=== PATIENT | female | born 1955 | race Caucasian/White ===

== ENCOUNTER 2019-05-20 11:14 | Emergency (ER) | payer MEDICARE, MEDICAID ==
[2019-05-20] MEDS ORDERED: Ondansetron 4 MG/2 ML SDV ONE (11:43)
[2019-05-20 11:52] LABS: CHLORIDE,CL 102 mEq/L (98-106); SODIUM,NA 139 mEq/L (136-145)
[2019-05-20] MEDS ORDERED: Ondansetron 4 MG/2 ML SDV IVPUSH PRN (11:53)
[2019-05-20] MEDS ORDERED: fentaNYL 100 MCG/2 ML SDV IVPUSH PRN (11:57)
[2019-05-20] MEDS ORDERED: Alum Hydrox/Mag Hydrox/Simeth 30 ML, Lidocaine 2% 15 ML PO ONE ×2 (12:48)
[2019-05-20] MEDS ORDERED: Morphine 10 MG/ML Syringe IVPUSH ONE (12:49)
--- NOTE | 2019-05-20 13:13 | EDM.PDOC ---
ED HPI GENERAL MEDICAL PROBLEM - General Chief Complaint: Chest Pain Stated Complaint: CP Time Seen by Provider: 05/20/19 11:20 Source of Information: Reports: Patient History Limitations: Reports: No Limitations - History of Present Illness INITIAL COMMENTS - FREE TEXT/NARRATIVE: Berna is a 63 yo female who presents to the ED via private vehicle with complaints of chest pain. She admits symptoms started around 4:30 this morning. States she has been having some epigastric abdominal pain and now has moved into her chest and back as well. States it hurts to touch in both her abdomen and back. She admits to having the urge to vomit. 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 If she puts her hands in her throat she can get herself to throw up. States last bowel movement was last night, which was a lot harder than normal for her. States she is unable to get comfortable and feels worse when she lays down. Onset: Gradual Onset Date: 05/20/19 Onset Time: 04:30 Duration: Getting Worse Location: Reports: Chest, Abdomen, Back, Generalized Quality: Reports: Ache Chest Pain Score (Numeric/FACES): 10 - Related Data Allergies Allergy/AdvReac Type Severity Reaction Status Date / Time ceftriaxone [From Rocephin] Allergy Rash Verified 05/20/19 13:53 cetirizine [From Zyrtec] Allergy Rash Verified 05/20/19 13:53 ciprofloxacin [From Cipro] Allergy Rash Verified 05/20/19 13:53 lorazepam [From Ativan] Allergy Rash Verified 05/20/19 13:53 Penicillins Allergy Rash Verified 05/20/19 13:53 pioglitazone [From Actos] Allergy Rash Verified 05/20/19 13:53 propoxyphene [From Darvon] Allergy Rash Verified 05/20/19 13:53 red (food color) Allergy Anaphylactic Verified 05/20/19 13:53 Shock rosiglitazone [From Avandia] Allergy Rash Verified 05/20/19 13:53 valacyclovir [From Valtrex] Allergy Rash Verified 05/20/19 13:53 Home Meds: Home Meds ALPRAZolam [Xanax] 1 mg PO DAILY PRN 05/20/19 [History] Ascorbate Calcium [Vitamin C] 500 mg PO BID 05/20/19 [History] Aspirin [Ecotrin EC] 1 mg DAILY 05/20/19 [History] Calcium Carbonate/Vitamin D3 [Calcium 600 + Vit D 200] 1 each PO BID 05/20/19 [ History] Carvedilol 6.25 mg BID 05/20/19 [History] Cholecalciferol (Vitamin D3) [Vitamin D] 2,000 tab DAILY 05/20/19 [History] Cyanocobalamin (Vitamin B-12) [Vitamin B-12] 1,000 mcg PO DAILY 05/20/19 [ History] DULoxetine [Cymbalta] 60 mg PO DAILY 05/20/19 [History] Estradiol 1 mg PO DAILY 05/20/19 [History] Levothyroxine 125 mcg DAILY 05/20/19 [History] Lisinopril 2.5 mg PO DAILY 05/20/19 [History] Lysine HCl [l-Lysine] 500 mg PO DAILY 05/20/19 [History] Magnesium 250 mg PO TID 05/20/19 [History] Montelukast [Singulair] 10 mg ASDIRECTED 05/20/19 [History] Multivitamin with Iron [Animal Shapes Plus Iron] 2 tab DAILY 05/20/19 [History] Omeprazole 20 mg PO BID 05/20/19 [History] atorvaSTATin [Lipitor] 10 mg DAILY 05/20/19 [History] Past Medical History Cardiovascular History: Reports: High Cholesterol, Hypertension Respiratory History: Reports: Asthma Gastrointestinal History: Reports: GERD, Other (See Below) (nausea and vomiting) LMP (Approximate): Menopausal Musculoskeletal History: Reports: Fibromyalgia Psychiatric History: Reports: Anxiety Endocrine/Metabolic History: Reports: Diabetes, Type II, Hypothyroidism - Past Surgical History HEENT Surgical History: Reports: Cataract Surgery, Tonsillectomy GI Surgical History: Reports: Appendectomy, Bariatric Procedure, Cholecystectomy , Hernia, Inguinal Female Surgical History: Reports: Hysterectomy, Oophorectomy, Tubal Ligation - History Comment History Comment: Please see RN note for past social, family and medical history Social & Family History - Family History Cardiac: Reports: CAD, High Cholesterol, Hypertension Musculoskeletal: Reports: Arthritis Psychiatric: Reports: Bipolar, Depression, Other (See Below) (alcohol abuse) Endocrine/Metabolic: Reports: Diabetes, Type I, Diabetes, type II - Tobacco Use Smoking Status *Q: Former Smoker Tobacco Use Within Last Twelve Months: No Years of Tobacco use: 35 Used Tobacco, but Quit: Yes Month/Year Tobacco Last Used: 2013 - Alcohol Use Alcohol Use History: No ED ROS GENERAL - Review of Systems Review Of Systems: See Below Constitutional: Reports: Decreased Appetite. Denies: Fever, Chills HEENT: Reports: No Symptoms Respiratory: Reports: No Symptoms. Denies: Shortness of Breath, Wheezing Cardiovascular: Reports: Chest Pain. Denies: Blood Pressure Problem, Edema, Lightheadedness, Palpitations GI/Abdominal: Reports: Abdominal Pain, Constipation, Decreased Appetite, Nausea. Denies: Bloody Stool, Diarrhea, Difficulty Swallowing, Distension, Hematochezia, Melena, Vomiting : Reports: No Symptoms Musculoskeletal: Reports: Back Pain Skin: Reports: No Symptoms Neurological: Reports: No Symptoms Psychiatric: Reports: No Symptoms ED EXAM, GENERAL - Physical Exam Exam: See Below Exam Limited By: No Limitations General Appearance: Alert, Moderate Distress Ears: Normal External Exam, Normal Canal, Hearing Grossly Normal, Normal TMs Nose: Normal Inspection, Normal Mucosa, No Blood Throat/Mouth: Normal Inspection, Normal Lips, Normal Teeth, Normal Gums, Normal Voice, No Airway Compromise Head: Atraumatic, Normocephalic Neck: Normal Inspection, Supple, Non-Tender Respiratory/Chest: No Respiratory Distress, Lungs Clear, Normal Breath Sounds Cardiovascular: Normal Peripheral Pulses, Regular Rate, Rhythm, No Edema, No Murmur Peripheral Pulses: 2+: Radial (L), Radial (R), Posterior Tibial (L), Posterior Tibial (R), Dorsalis Pedis (L), Dorsalis Pedis (R) GI/Abdominal: No Organomegaly, No Mass, Guarding, Tender (epigastric), Abnormal Bowel Sounds (hypoactive), Other (obese) Back Exam: Paraspinal Tenderness, Vertebral Tenderness (generalized through out entire low to midback) Extremities: No Pedal Edema Neurological: Alert, Oriented Psychiatric: Normal Affect, Normal Mood Skin Exam: Warm, Dry, Intact, Normal Color, No Rash Course - Vital Signs Last Recorded V/S: Last Vital Signs Temp 96.6 F 05/20/19 12:38 Pulse 71 05/20/19 12:38 Resp 20 05/20/19 12:38 BP 156/79 H 05/20/19 12:38 Pulse Ox 94 L 05/20/19 12:38 - Orders/Labs/Meds Labs: Laboratory Tests 05/20/19 05/20/19 05/20/19 Range/Units 11:33 11:33 11:33 WBC 7.5 (5.0-10.0) 10^3/uL RBC 4.31 (4.00-5.50) 10^6/uL Hgb 13.4 (12.0-16.0) g/dL Hct 40.3 (37.0-47.0) % MCV 93.5 (82.0-94.0) fL MCH 31.1 (27.0-32.0) pg MCHC 33.3 (33.0-38.0) g/dL RDW Coeff of Jemma 13.3 (11.0-15.0) % Plt Count 220 (150-400) 10^3/uL Neut % (Auto) 79.2 (35-85) % Lymph % (Auto) 15.2 (10-55) % [place] % (Auto) 4.8 (0-16) % Eos % (Auto) 0.7 (0-5) % Baso % (Auto) 0.1 (0-3) % Neut # (Auto) 5.94 (1.80-7.00) 10^3/uL Lymph # (Auto) 1.14 (1.00-4.80) 10^3/uL [place] # (Auto) 0.36 (0.00-0.80) 10^3/uL Eos # (Auto) 0.05 (0.00-0.45) 10^3/uL Baso # (Auto) 0.01 10^3/uL PT 10.8 (9.7-12.3) SEC INR 1.05 (0.92-1.18) APTT 24.3 (23.2-32.3) SEC Sodium 139 (136-145) mEq/L Potassium 4.1 (3.5-5.0) mEq/L Chloride 102 (98-106) mEq/L Carbon Dioxide 26 (21-32) mmol/L BUN 26 H (7-18) mg/dL Creatinine 0.9 (0.6-1.0) mg/dL Est Cr Clr Drug Dosing TNP Estimated GFR (MDRD) > 60 (>=60) mL/min Glucose 158 H D (75-99) mg/dL Lactic Acid (0.4-2.0) mmol/L Calcium 9.0 (8.4-10.1) mg/dL Total Bilirubin (0.0-1.0) mg/dL Direct Bilirubin (0.0-0.3) mg/dL Indirect Bilirubin mg/dL AST (15-37) U/L ALT (12-78) U/L Alkaline Phosphatase (46-116) U/L Lactate Dehydrogenase 369 H (100-190) U/L Creatine Kinase 33 (21-215) U/L Troponin I < 0.017 (0.00-0.06) ng/mL C-Reactive Protein (0.2-0.8) mg/dL Total Protein (6.4-8.2) g/dL Albumin (3.4-5.0) g/dL Globulin (2.7-3.2) g/dL Albumin/Globulin Ratio (0.9-1.8) Amylase (25-115) U/L Lipase (73-393) U/L Urine Color (YELLOW) Urine Appearance (CLEAR) Urine pH (4.5-8.0) Ur Specific [place] (1.003-1.020) Urine Protein (NEGATIVE) mg/dL Urine Glucose (UA) (NEGATIVE) mg/dL Urine Ketones (NEGATIVE) mg/dL Urine Occult Blood (NEGATIVE) Urine Nitrite (NEGATIVE) Urine Bilirubin (NEGATIVE) Urine Urobilinogen (0.2-1.0) EU/dL Ur Leukocyte Esterase (NEGATIVE) Urine RBC (0-5) /HPF Urine WBC (0-5) /HPF Ur Epithelial Cells (NOT SEEN) /HPF Urine Bacteria (NOT SEEN) /HPF Urine Mucus (NOT SEEN) /HPF 05/20/19 05/20/19 05/20/19 Range/Units 11:50 12:00 12:00 WBC (5.0-10.0) 10^3/uL RBC (4.00-5.50) 10^6/uL Hgb (12.0-16.0) g/dL Hct (37.0-47.0) % MCV (82.0-94.0) fL MCH (27.0-32.0) pg MCHC (33.0-38.0) g/dL RDW Coeff of Jemma (11.0-15.0) % Plt Count (150-400) 10^3/uL Neut % (Auto) (35-85) % Lymph % (Auto) (10-55) % [place] % (Auto) (0-16) % Eos % (Auto) (0-5) % Baso % (Auto) (0-3) % Neut # (Auto) (1.80-7.00) 10^3/uL Lymph # (Auto) (1.00-4.80) 10^3/uL [place] # (Auto) (0.00-0.80) 10^3/uL Eos # (Auto) (0.00-0.45) 10^3/uL Baso # (Auto) 10^3/uL PT (9.7-12.3) SEC INR (0.92-1.18) APTT (23.2-32.3) SEC Sodium (136-145) mEq/L Potassium (3.5-5.0) mEq/L Chloride (98-106) mEq/L Carbon Dioxide (21-32) mmol/L BUN (7-18) mg/dL Creatinine (0.6-1.0) mg/dL Est Cr Clr Drug Dosing Estimated GFR (MDRD) (>=60) mL/min Glucose (75-99) mg/dL Lactic Acid (0.4-2.0) mmol/L Calcium (8.4-10.1) mg/dL Total Bilirubin 1.3 H (0.0-1.0) mg/dL Direct Bilirubin 0.9 H (0.0-0.3) mg/dL Indirect Bilirubin 0.4 mg/dL AST 363 H* (15-37) U/L ALT 325 H* (12-78) U/L Alkaline Phosphatase 263 H (46-116) U/L Lactate Dehydrogenase (100-190) U/L Creatine Kinase (21-215) U/L Troponin I (0.00-0.06) ng/mL C-Reactive Protein < 0.2 L (0.2-0.8) mg/dL Total Protein 7.1 (6.4-8.2) g/dL Albumin 3.3 L (3.4-5.0) g/dL Globulin 3.8 H (2.7-3.2) g/dL Albumin/Globulin Ratio 0.9 (0.9-1.8) Amylase 544 H (25-115) U/L Lipase 16660 H (73-393) U/L Urine Color Dark yellow (YELLOW) Urine Appearance Clear (CLEAR) Urine pH 5.0 (4.5-8.0) Ur Specific [place] >= 1.030 H (1.003-1.020) Urine Protein Trace H (NEGATIVE) mg/dL Urine Glucose (UA) Negative (NEGATIVE) mg/dL Urine Ketones Negative (NEGATIVE) mg/dL Urine Occult Blood Trace-lysed H (NEGATIVE) Urine Nitrite Negative (NEGATIVE) Urine Bilirubin Moderate H (NEGATIVE) Urine Urobilinogen 1.0 (0.2-1.0) EU/dL Ur Leukocyte Esterase Negative (NEGATIVE) Urine RBC 0-5 (0-5) /HPF Urine WBC Not seen (0-5) /HPF Ur Epithelial Cells Moderate H (NOT SEEN) /HPF Urine Bacteria Few H (NOT SEEN) /HPF Urine Mucus Few H (NOT SEEN) /HPF 05/20/19 05/20/19 Range/Units 13:20 16:05 WBC (5.0-10.0) 10^3/uL RBC (4.00-5.50) 10^6/uL Hgb (12.0-16.0) g/dL Hct (37.0-47.0) % MCV (82.0-94.0) fL MCH (27.0-32.0) pg MCHC (33.0-38.0) g/dL RDW Coeff of Jemma (11.0-15.0) % Plt Count (150-400) 10^3/uL Neut % (Auto) (35-85) % Lymph % (Auto) (10-55) % [place] % (Auto) (0-16) % Eos % (Auto) (0-5) % Baso % (Auto) (0-3) % Neut # (Auto) (1.80-7.00) 10^3/uL Lymph # (Auto) (1.00-4.80) 10^3/uL [place] # (Auto) (0.00-0.80) 10^3/uL Eos # (Auto) (0.00-0.45) 10^3/uL Baso # (Auto) 10^3/uL PT (9.7-12.3) SEC INR (0.92-1.18) APTT (23.2-32.3) SEC Sodium (136-145) mEq/L Potassium (3.5-5.0) mEq/L Chloride (98-106) mEq/L Carbon Dioxide (21-32) mmol/L BUN (7-18) mg/dL Creatinine (0.6-1.0) mg/dL Est Cr Clr Drug Dosing Estimated GFR (MDRD) (>=60) mL/min Glucose (75-99) mg/dL Lactic Acid 2.5 H (0.4-2.0) mmol/L Calcium (8.4-10.1) mg/dL Total Bilirubin (0.0-1.0) mg/dL Direct Bilirubin (0.0-0.3) mg/dL Indirect Bilirubin mg/dL AST (15-37) U/L ALT (12-78) U/L Alkaline Phosphatase (46-116) U/L Lactate Dehydrogenase (100-190) U/L Creatine Kinase (21-215) U/L Troponin I < 0.017 (0.00-0.06) ng/mL C-Reactive Protein (0.2-0.8) mg/dL Total Protein (6.4-8.2) g/dL Albumin (3.4-5.0) g/dL Globulin (2.7-3.2) g/dL Albumin/Globulin Ratio (0.9-1.8) Amylase (25-115) U/L Lipase (73-393) U/L Urine Color (YELLOW) Urine Appearance (CLEAR) Urine pH (4.5-8.0) Ur Specific [place] (1.003-1.020) Urine Protein (NEGATIVE) mg/dL Urine Glucose (UA) (NEGATIVE) mg/dL Urine Ketones (NEGATIVE) mg/dL Urine Occult Blood (NEGATIVE) Urine Nitrite (NEGATIVE) Urine Bilirubin (NEGATIVE) Urine Urobilinogen (0.2-1.0) EU/dL Ur Leukocyte Esterase (NEGATIVE) Urine RBC (0-5) /HPF Urine WBC (0-5) /HPF Ur Epithelial Cells (NOT SEEN) /HPF Urine Bacteria (NOT SEEN) /HPF Urine Mucus (NOT SEEN) /HPF Meds: Medications Discontinued Medications Generic Name Dose Route Start Last Admin Trade Name Freq PRN Reason Stop Dose Admin Al Hydroxide/Mg Hydroxide 30 0 ml 05/20/19 12:48 05/20/19 12:54 ml/ Lidocaine HCl 15 ml PO 05/20/19 12:49 15 ml ONETIME ONE Administration Fentanyl 50 mcg 05/20/19 11:57 05/20/19 12:05 Sublimaze IVPUSH 50 mcg Q6H PRN Administration Pain Hydromorphone HCl 1 mg 05/20/19 13:14 05/20/19 13:24 Dilaudid IVPUSH 05/20/19 13:15 1 mg ONETIME ONE Administration Hydromorphone HCl 1 mg 05/20/19 13:55 05/20/19 14:02 Dilaudid IVPUSH 05/20/19 13:56 1 mg ONETIME ONE Administration Hydromorphone HCl 1 mg 05/20/19 16:47 05/20/19 16:52 Dilaudid IVPUSH 05/20/19 16:48 1 mg ONETIME ONE Administration Sodium Chloride 1,000 mls @ 1,000 mls/hr 05/20/19 13:15 05/20/19 13:21 Normal Saline IV 05/20/19 14:14 1,000 mls/hr .BOLUS ONE Administration Iopamidol 162 ml 05/20/19 13:20 05/20/19 13:41 Isovue-370 (76%) IV 05/20/19 13:21 162 ml ONETIME ONE Administration Morphine Sulfate 5 mg 05/20/19 12:49 05/20/19 12:57 Morphine IVPUSH 05/20/19 12:50 5 mg ONETIME ONE Administration Ondansetron HCl 4 mg 05/20/19 11:53 05/20/19 11:57 Zofran IVPUSH 4 mg Q6H PRN Administration Nausea Ondansetron HCl Confirm 05/20/19 11:43 05/20/19 12:34 Zofran Administered 05/20/19 11:44 Not Given Dose 4 mg .ROUTE .STK-MED ONE Ondansetron HCl 4 mg 05/20/19 13:14 05/20/19 13:30 Zofran IVPUSH 05/20/19 13:15 4 mg NOW STA Administration Ondansetron HCl 4 mg 05/20/19 15:41 05/20/19 15:47 Zofran IVPUSH 05/20/19 15:42 4 mg NOW STA Administration - Re-Assessments/Exams Free Text/Narrative Re-Assessment/Exam: 05/20/19 13:35 Labs, EKG, chest x-ray and abdominal films were all unremarkable. Patient did have a spec grav greater than 1.030. Will start IV fluids. Initially, Berna was given 4mg of Zofran and 50mcg of Fentanyl without any relief. Pain continued to be a 10 out of 10 and she was given 5mg of Morphine. She continued to not get any relief. I consulted with Calvin Varma who will continue care. CT of the abdomen/pelvis was ordered to rule out ischema vs obstruction. 05/20/19 13:[address] of the abdomen/pelvis and appears to be a very large gallbladder with sludge and stones present. I discussed with Berna her recollection of having gallbaldder surgery, which she states she did when she was 18. After reconfirmation, she admits it was actually only her appendix. Departure - Departure Time of Disposition: 14:00 Disposition: DC/Tfer to [facility] 02 Clinical Impression: Biliary acute pancreatitis Qualifiers: Acute pancreatitis complication: no infection or necrosis Qualified Code(s): K85.10 - Biliary acute pancreatitis without necrosis or infection - Discharge Information Referrals: Quintin Guadalupe MD [Primary Care Provider] - Forms: ED Department Discharge - Problem List & Annotations (1) Biliary acute pancreatitis SNOMED Code(s): 456827557 Code(s): K85.10 - BILIARY ACUTE PANCREATITIS WITHOUT NECROSIS OR INFECTION Status: Acute Qualifiers: Acute pancreatitis complication: no infection or necrosis Qualified Code(s) : K85.10 - Biliary acute pancreatitis without necrosis or infection - Assessment/Plan Plan: Calvin Varma did transfer patient secondary to biliary pancreatitis. Please see his note for discharge.
[2019-05-20] MEDS ORDERED: Ondansetron 4 MG/2 ML SDV IVPUSH STA ×2 (13:14→15:41)
[2019-05-20] MEDS ORDERED: HYDROmorphone 1 MG/ML Syringe IVPUSH ONE ×3 (13:14→16:47)
[2019-05-20] MEDS ORDERED: Sodium Chloride 0.9% 1,000 ML IV ONE (13:15)
[2019-05-20] MEDS ORDERED: Iopamidol 755 Mg/ML 200 ML Bottle IV ONE (13:20)
--- NOTE | 2019-05-20 13:34 | EDM.PDOC ---
ED HPI GENERAL MEDICAL PROBLEM - General Chief Complaint: Chest Pain Stated Complaint: CP Time Seen by Provider: 05/20/19 11:20 Source of Information: Reports: Patient, RN Notes Reviewed History Limitations: Reports: No Limitations - History of Present Illness INITIAL COMMENTS - FREE TEXT/NARRATIVE: Berna is a 63 yo female who presents to the ED via private vehicle with complaints of chest pain. She admits symptoms started around 4:30 this morning. States she has been having some epigastric abdominal pain and now has moved into her chest and back as well. States it hurts to touch in both her abdomen and back. She admits to having the urge to vomit. 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 If she puts her hands in her throat she can get herself to throw up. States last bowel movement was last night, which was a lot harder than normal for her. States she is unable to get comfortable and feels worse when she lays down. Onset: Gradual Onset Date: 05/20/19 Onset Time: 04:30 Duration: Getting Worse Location: Reports: Chest, Abdomen, Back, Generalized Quality: Reports: Ache Chest Pain Score (Numeric/FACES): 10 - Related Data Allergies Allergy/AdvReac Type Severity Reaction Status Date / Time ceftriaxone [From Rocephin] Allergy Rash Verified 05/20/19 13:53 cetirizine [From Zyrtec] Allergy Rash Verified 05/20/19 13:53 ciprofloxacin [From Cipro] Allergy Rash Verified 05/20/19 13:53 lorazepam [From Ativan] Allergy Rash Verified 05/20/19 13:53 Penicillins Allergy Rash Verified 05/20/19 13:53 pioglitazone [From Actos] Allergy Rash Verified 05/20/19 13:53 propoxyphene [From Darvon] Allergy Rash Verified 05/20/19 13:53 red (food color) Allergy Anaphylactic Verified 05/20/19 13:53 Shock rosiglitazone [From Avandia] Allergy Rash Verified 05/20/19 13:53 valacyclovir [From Valtrex] Allergy Rash Verified 05/20/19 13:53 Home Meds: Home Meds ALPRAZolam [Xanax] 1 mg PO DAILY PRN 05/20/19 [History] Ascorbate Calcium [Vitamin C] 500 mg PO BID 05/20/19 [History] Aspirin [Ecotrin EC] 1 mg DAILY 05/20/19 [History] Calcium Carbonate/Vitamin D3 [Calcium 600 + Vit D 200] 1 each PO BID 05/20/19 [ History] Carvedilol 6.25 mg BID 05/20/19 [History] Cholecalciferol (Vitamin D3) [Vitamin D] 2,000 tab DAILY 05/20/19 [History] Cyanocobalamin (Vitamin B-12) [Vitamin B-12] 1,000 mcg PO DAILY 05/20/19 [ History] DULoxetine [Cymbalta] 60 mg PO DAILY 05/20/19 [History] Estradiol 1 mg PO DAILY 05/20/19 [History] Levothyroxine 125 mcg DAILY 05/20/19 [History] Lisinopril 2.5 mg PO DAILY 05/20/19 [History] Lysine HCl [l-Lysine] 500 mg PO DAILY 05/20/19 [History] Magnesium 250 mg PO TID 05/20/19 [History] Montelukast [Singulair] 10 mg ASDIRECTED 05/20/19 [History] Multivitamin with Iron [Animal Shapes Plus Iron] 2 tab DAILY 05/20/19 [History] Omeprazole 20 mg PO BID 05/20/19 [History] atorvaSTATin [Lipitor] 10 mg DAILY 05/20/19 [History] Past Medical History Cardiovascular History: Reports: High Cholesterol, Hypertension Respiratory History: Reports: Asthma Gastrointestinal History: Reports: GERD, Other (See Below) (nausea and vomiting) Musculoskeletal History: Reports: Fibromyalgia Psychiatric History: Reports: Anxiety Endocrine/Metabolic History: Reports: Diabetes, Type II, Hypothyroidism - Past Surgical History HEENT Surgical History: Reports: Cataract Surgery, Tonsillectomy GI Surgical History: Reports: Appendectomy, Bariatric Procedure, Cholecystectomy , Hernia, Inguinal Female Surgical History: Reports: Hysterectomy, Oophorectomy, Tubal Ligation - History Comment History Comment: Please see RN note for past social, family and medical history Social & Family History - Family History Cardiac: Reports: High Cholesterol, Hypertension Musculoskeletal: Reports: Arthritis Psychiatric: Reports: Bipolar, Depression Endocrine/Metabolic: Reports: Diabetes, Type I, Diabetes, type II ED ROS GENERAL - Review of Systems Review Of Systems: See Below Constitutional: Reports: No Symptoms HEENT: Reports: No Symptoms Respiratory: Reports: No Symptoms Cardiovascular: Reports: No Symptoms Endocrine: Reports: No Symptoms GI/Abdominal: Reports: Abdominal Pain, Nausea. Denies: Vomiting : Reports: No Symptoms Musculoskeletal: Reports: Back Pain Skin: Reports: No Symptoms Neurological: Reports: No Symptoms Psychiatric: Reports: No Symptoms Hematologic/Lymphatic: Reports: No Symptoms Immunologic: Reports: No Symptoms ED EXAM, GI/ABD - Physical Exam Exam: See Below Exam Limited By: No Limitations General Appearance: Alert, WD/WN, Anxious, Moderate Distress (In Pain, moaning. ), Obese Eyes: Bilateral: Normal Appearance Ears: Normal External Exam, Normal Canal, Hearing Grossly Normal, Normal TMs Nose: Normal Inspection, Normal Mucosa, No Blood Throat/Mouth: Normal Inspection, Normal Lips, Normal Teeth, Normal Gums, Normal Oropharynx, Normal Voice, No Airway Compromise Head: Atraumatic, Normocephalic Neck: Normal Inspection, Supple, Non-Tender, Full Range of Motion Respiratory/Chest: No Respiratory Distress, Lungs Clear, Normal Breath Sounds, No Accessory Muscle Use, Chest Non-Tender Cardiovascular: Normal Peripheral Pulses, Regular Rate, Rhythm, No Edema, No Gallop, No JVD, No Murmur, No Rub GI/Abdominal Exam: Soft (Lower abd.), Guarding (RUQ), Tender (RUQ severe), Hernia (Umbilical large, not reducable. ), Other (Obesity makes landmarks difficult to locate during examination. ) (Female) Exam: Deferred Rectal (Female) Exam: Deferred Back Exam: Normal Inspection, Full Range of Motion. No: CVA Tenderness (L), CVA Tenderness (R), Decreased Range of Motion, Muscle Spasm, Paraspinal Tenderness, Vertebral Tenderness Extremities: Normal Inspection, Normal Range of Motion, Non-Tender, No Pedal Edema, Normal Capillary Refill Neurological: Alert, Oriented, No Motor/Sensory Deficits Psychiatric: Anxious, Other (moaning, appears in pain. ) Skin Exam: Warm, Dry, Intact, Normal Color, No Rash Lymphatic: No Adenopathy Course - Vital Signs Last Recorded V/S: Last Vital Signs Temp 96.6 F 05/20/19 12:38 Pulse 71 05/20/19 12:38 Resp 20 05/20/19 12:38 BP 156/79 H 05/20/19 12:38 Pulse Ox 94 L 05/20/19 12:38 - Orders/Labs/Meds Orders: Active Orders 24 hr Category Date Time Status Abdomen 2V AP Flat Upright [CR] Stat Exams 05/20/19 12:01 Taken Abdomen Pelvis w Cont [CT] Stat Exams 05/20/19 13:14 Taken Chest 2V [CR] Routine Exams 05/20/19 Taken TROPONIN I [CHEM] Stat Lab 05/20/19 16:03 Ordered Ondansetron [Zofran] Med 05/20/19 11:53 Active 4 mg IVPUSH Q6H PRN fentaNYL [Sublimaze] Med 05/20/19 11:57 Active 50 mcg IVPUSH Q6H PRN Medication Orders Fentanyl (Sublimaze) 50 mcg IVPUSH Q6H PRN PRN Reason: Pain Last Admin: 05/20/19 12:05 Dose: 50 mcg Ondansetron HCl (Zofran) 4 mg IVPUSH Q6H PRN PRN Reason: Nausea Last Admin: 05/20/19 11:57 Dose: 4 mg Labs: Laboratory Tests 05/20/19 05/20/19 05/20/19 Range/Units 11:33 11:33 11:33 WBC 7.5 (5.0-10.0) 10^3/uL RBC 4.31 (4.00-5.50) 10^6/uL Hgb 13.4 (12.0-16.0) g/dL Hct 40.3 (37.0-47.0) % MCV 93.5 (82.0-94.0) fL MCH 31.1 (27.0-32.0) pg MCHC 33.3 (33.0-38.0) g/dL RDW Coeff of Jemma 13.3 (11.0-15.0) % Plt Count 220 (150-400) 10^3/uL Neut % (Auto) 79.2 (35-85) % Lymph % (Auto) 15.2 (10-55) % [place] % (Auto) 4.8 (0-16) % Eos % (Auto) 0.7 (0-5) % Baso % (Auto) 0.1 (0-3) % Neut # (Auto) 5.94 (1.80-7.00) 10^3/uL Lymph # (Auto) 1.14 (1.00-4.80) 10^3/uL [place] # (Auto) 0.36 (0.00-0.80) 10^3/uL Eos # (Auto) 0.05 (0.00-0.45) 10^3/uL Baso # (Auto) 0.01 10^3/uL PT 10.8 (9.7-12.3) SEC INR 1.05 (0.92-1.18) APTT 24.3 (23.2-32.3) SEC Sodium 139 (136-145) mEq/L Potassium 4.1 (3.5-5.0) mEq/L Chloride 102 (98-106) mEq/L Carbon Dioxide 26 (21-32) mmol/L BUN 26 H (7-18) mg/dL Creatinine 0.9 (0.6-1.0) mg/dL Est Cr Clr Drug Dosing TNP Estimated GFR (MDRD) > 60 (>=60) mL/min Glucose 158 H D (75-99) mg/dL Lactic Acid (0.4-2.0) mmol/L Calcium 9.0 (8.4-10.1) mg/dL Total Bilirubin (0.0-1.0) mg/dL Direct Bilirubin (0.0-0.3) mg/dL Indirect Bilirubin mg/dL AST (15-37) U/L ALT (12-78) U/L Alkaline Phosphatase (46-116) U/L Lactate Dehydrogenase 369 H (100-190) U/L Creatine Kinase 33 (21-215) U/L Troponin I < 0.017 (0.00-0.06) ng/mL C-Reactive Protein (0.2-0.8) mg/dL Total Protein (6.4-8.2) g/dL Albumin (3.4-5.0) g/dL Globulin (2.7-3.2) g/dL Albumin/Globulin Ratio (0.9-1.8) Amylase (25-115) U/L Lipase (73-393) U/L Urine Color (YELLOW) Urine Appearance (CLEAR) Urine pH (4.5-8.0) Ur Specific Gregory (1.003-1.020) Urine Protein (NEGATIVE) mg/dL Urine Glucose (UA) (NEGATIVE) mg/dL Urine Ketones (NEGATIVE) mg/dL Urine Occult Blood (NEGATIVE) Urine Nitrite (NEGATIVE) Urine Bilirubin (NEGATIVE) Urine Urobilinogen (0.2-1.0) EU/dL Ur Leukocyte Esterase (NEGATIVE) Urine RBC (0-5) /HPF Urine WBC (0-5) /HPF Ur Epithelial Cells (NOT SEEN) /HPF Urine Bacteria (NOT SEEN) /HPF Urine Mucus (NOT SEEN) /HPF 05/20/19 05/20/19 05/20/19 Range/Units 11:50 12:00 12:00 WBC (5.0-10.0) 10^3/uL RBC (4.00-5.50) 10^6/uL Hgb (12.0-16.0) g/dL Hct (37.0-47.0) % MCV (82.0-94.0) fL MCH (27.0-32.0) pg MCHC (33.0-38.0) g/dL RDW Coeff of Jemma (11.0-15.0) % Plt Count (150-400) 10^3/uL Neut % (Auto) (35-85) % Lymph % (Auto) (10-55) % [place] % (Auto) (0-16) % Eos % (Auto) (0-5) % Baso % (Auto) (0-3) % Neut # (Auto) (1.80-7.00) 10^3/uL Lymph # (Auto) (1.00-4.80) 10^3/uL [place] # (Auto) (0.00-0.80) 10^3/uL Eos # (Auto) (0.00-0.45) 10^3/uL Baso # (Auto) 10^3/uL PT (9.7-12.3) SEC INR (0.92-1.18) APTT (23.2-32.3) SEC Sodium (136-145) mEq/L Potassium (3.5-5.0) mEq/L Chloride (98-106) mEq/L Carbon Dioxide (21-32) mmol/L BUN (7-18) mg/dL Creatinine (0.6-1.0) mg/dL Est Cr Clr Drug Dosing Estimated GFR (MDRD) (>=60) mL/min Glucose (75-99) mg/dL Lactic Acid (0.4-2.0) mmol/L Calcium (8.4-10.1) mg/dL Total Bilirubin 1.3 H (0.0-1.0) mg/dL Direct Bilirubin 0.9 H (0.0-0.3) mg/dL Indirect Bilirubin 0.4 mg/dL AST 363 H* (15-37) U/L ALT 325 H* (12-78) U/L Alkaline Phosphatase 263 H (46-116) U/L Lactate Dehydrogenase (100-190) U/L Creatine Kinase (21-215) U/L Troponin I (0.00-0.06) ng/mL C-Reactive Protein < 0.2 L (0.2-0.8) mg/dL Total Protein 7.1 (6.4-8.2) g/dL Albumin 3.3 L (3.4-5.0) g/dL Globulin 3.8 H (2.7-3.2) g/dL Albumin/Globulin Ratio 0.9 (0.9-1.8) Amylase 544 H (25-115) U/L Lipase 60769 H (73-393) U/L Urine Color Dark yellow (YELLOW) Urine Appearance Clear (CLEAR) Urine pH 5.0 (4.5-8.0) Ur Specific Gregory >= 1.030 H (1.003-1.020) Urine Protein Trace H (NEGATIVE) mg/dL Urine Glucose (UA) Negative (NEGATIVE) mg/dL Urine Ketones Negative (NEGATIVE) mg/dL Urine Occult Blood Trace-lysed H (NEGATIVE) Urine Nitrite Negative (NEGATIVE) Urine Bilirubin Moderate H (NEGATIVE) Urine Urobilinogen 1.0 (0.2-1.0) EU/dL Ur Leukocyte Esterase Negative (NEGATIVE) Urine RBC 0-5 (0-5) /HPF Urine WBC Not seen (0-5) /HPF Ur Epithelial Cells Moderate H (NOT SEEN) /HPF Urine Bacteria Few H (NOT SEEN) /HPF Urine Mucus Few H (NOT SEEN) /HPF 05/20/19 Range/Units 13:20 WBC (5.0-10.0) 10^3/uL RBC (4.00-5.50) 10^6/uL Hgb (12.0-16.0) g/dL Hct (37.0-47.0) % MCV (82.0-94.0) fL MCH (27.0-32.0) pg MCHC (33.0-38.0) g/dL RDW Coeff of Jemma (11.0-15.0) % Plt Count (150-400) 10^3/uL Neut % (Auto) (35-85) % Lymph % (Auto) (10-55) % [place] % (Auto) (0-16) % Eos % (Auto) (0-5) % Baso % (Auto) (0-3) % Neut # (Auto) (1.80-7.00) 10^3/uL Lymph # (Auto) (1.00-4.80) 10^3/uL [place] # (Auto) (0.00-0.80) 10^3/uL Eos # (Auto) (0.00-0.45) 10^3/uL Baso # (Auto) 10^3/uL PT (9.7-12.3) SEC INR (0.92-1.18) APTT (23.2-32.3) SEC Sodium (136-145) mEq/L Potassium (3.5-5.0) mEq/L Chloride (98-106) mEq/L Carbon Dioxide (21-32) mmol/L BUN (7-18) mg/dL Creatinine (0.6-1.0) mg/dL Est Cr Clr Drug Dosing Estimated GFR (MDRD) (>=60) mL/min Glucose (75-99) mg/dL Lactic Acid 2.5 H (0.4-2.0) mmol/L Calcium (8.4-10.1) mg/dL Total Bilirubin (0.0-1.0) mg/dL Direct Bilirubin (0.0-0.3) mg/dL Indirect Bilirubin mg/dL AST (15-37) U/L ALT (12-78) U/L Alkaline Phosphatase (46-116) U/L Lactate Dehydrogenase (100-190) U/L Creatine Kinase (21-215) U/L Troponin I (0.00-0.06) ng/mL C-Reactive Protein (0.2-0.8) mg/dL Total Protein (6.4-8.2) g/dL Albumin (3.4-5.0) g/dL Globulin (2.7-3.2) g/dL Albumin/Globulin Ratio (0.9-1.8) Amylase (25-115) U/L Lipase (73-393) U/L Urine Color (YELLOW) Urine Appearance (CLEAR) Urine pH (4.5-8.0) Ur Specific Gregory (1.003-1.020) Urine Protein (NEGATIVE) mg/dL Urine Glucose (UA) (NEGATIVE) mg/dL Urine Ketones (NEGATIVE) mg/dL Urine Occult Blood (NEGATIVE) Urine Nitrite (NEGATIVE) Urine Bilirubin (NEGATIVE) Urine Urobilinogen (0.2-1.0) EU/dL Ur Leukocyte Esterase (NEGATIVE) Urine RBC (0-5) /HPF Urine WBC (0-5) /HPF Ur Epithelial Cells (NOT SEEN) /HPF Urine Bacteria (NOT SEEN) /HPF Urine Mucus (NOT SEEN) /HPF Meds: Medications Generic Name Dose Route Start Last Admin Trade Name Freq PRN Reason Stop Dose Admin Fentanyl 50 mcg 05/20/19 11:57 05/20/19 12:05 Sublimaze IVPUSH 50 mcg Q6H PRN Administration Pain Ondansetron HCl 4 mg 05/20/19 11:53 05/20/19 11:57 Zofran IVPUSH 4 mg Q6H PRN Administration Nausea Discontinued Medications Generic Name Dose Route Start Last Admin Trade Name Freq PRN Reason Stop Dose Admin Al Hydroxide/Mg Hydroxide 30 0 ml 05/20/19 12:48 05/20/19 12:54 ml/ Lidocaine HCl 15 ml PO 05/20/19 12:49 15 ml ONETIME ONE Administration Hydromorphone HCl 1 mg 05/20/19 13:14 05/20/19 13:24 Dilaudid IVPUSH 05/20/19 13:15 1 mg ONETIME ONE Administration Hydromorphone HCl 1 mg 05/20/19 13:55 05/20/19 14:02 Dilaudid IVPUSH 05/20/19 13:56 1 mg ONETIME ONE Administration Sodium Chloride 1,000 mls @ 1,000 mls/hr 05/20/19 13:15 05/20/19 13:21 Normal Saline IV 05/20/19 14:14 1,000 mls/hr .BOLUS ONE Administration Iopamidol 162 ml 05/20/19 13:20 05/20/19 13:41 Isovue-370 (76%) IV 05/20/19 13:21 162 ml ONETIME ONE Administration Morphine Sulfate 5 mg 05/20/19 12:49 05/20/19 12:57 Morphine IVPUSH 05/20/19 12:50 5 mg ONETIME ONE Administration Ondansetron HCl Confirm 05/20/19 11:43 05/20/19 12:34 Zofran Administered 05/20/19 11:44 Not Given Dose 4 mg .ROUTE .STK-MED ONE Ondansetron HCl 4 mg 05/20/19 13:14 05/20/19 13:30 Zofran IVPUSH 05/20/19 13:15 4 mg NOW STA Administration Ondansetron HCl 4 mg 05/20/19 15:41 05/20/19 15:47 Zofran IVPUSH 05/20/19 15:42 4 mg NOW STA Administration - Radiology Interpretation Free Text/Narrative:: Gallbladder sludge and or gallstones but no secondary inflammatory changes. Common bile duct size is prominent correlate with liver enzyems as duct distally has fairly abrupt termination correlate for choledocholithiasis. CT Results Date: 05/20/19 CT Results Time: 15:30 - Re-Assessments/Exams Free Text/Narrative Re-Assessment/Exam: 05/20/19 13:43 Kolton HARDING has given me report on this patient. I have assumed care of this patient. I assessed the patient. She is guarding her abdomen after having Fentanyl and Morphine. She continues severe pain and moaning. The patient reports having a hard BM at 4pm today. She reports nausea but no vomiting, but reports history of of gastric bypass many years ago. I have reviewed patient labs. The patient abdomen pain is intractable. I suspect bowel obstruction, bowel pelvis ischemia, OR cholecystitis as possibilities. Considered US of gallbladder, however due to the amount of pain the patient is having, and possible obstruction/ischemia based of patient pain, will CT. Ordered a CT of abd/pelvis. Giving Dilaudid for pain. 05/20/19 15:34 Patient pain after Dilaudid is now a 2/10. She appears much more comfortable. I received patient CT report. I then reviewed labs to notice no liver enzymes were done, I have ordered these. Once I receive, I will call [facility] to consult general surgeon to determine surgical or nonsurgical. I have also also added a troponin repeat due to presentation of epigastric pain radiation into the back with nausea. 05/20/19 16:[address] Farooq general surgeon at [facility]. He believes the patient has biliary pancreatitis. He said to transfer the patient so he can evaluate and treat the patient. I will transfer the patient. Departure - Departure Time of Disposition: 16:23 Disposition: DC/Tfer to [facility] 02 Condition: Fair Clinical Impression: Biliary acute pancreatitis Qualifiers: Acute pancreatitis complication: no infection or necrosis Qualified Code(s): K85.10 - Biliary acute pancreatitis without necrosis or infection - Discharge Information *PRESCRIPTION DRUG MONITORING PROGRAM REVIEWED*: Not Applicable *COPY OF PRESCRIPTION DRUG MONITORING REPORT IN PATIENT TISH: Not Applicable Referrals: Quintin Guadalupe MD [Primary Care Provider] - Forms: ED Department Discharge - My Orders Last 24 Hours: My Active Orders 05/20/19 13:14 Abdomen Pelvis w Cont [CT] Stat 05/20/19 16:03 TROPONIN I [CHEM] Stat - Assessment/Plan Last 24 Hours: My Active Orders 05/20/19 13:14 Abdomen Pelvis w Cont [CT] Stat 05/20/19 16:03 TROPONIN I [CHEM] Stat Plan: PLEASE SEE RN NOTE FOR PFSH. I am transferring the patient to [facility]. The risks and benefits discussed with patient and family. The accept transfer. The risks of transfer are mvc, worsening of pain, nausea, , worsening of condition. The risk of staying in [place] are , worsening of pain, worsening of condition, jaundice. The benefits of going to [place] are seeing general surgeon, surgery if needed, further evaluation, testing, and treatment, higher level of care. The benefits of staying in [place] are close to home.
== END 2019-05-20 17:00 ==
LOC: CC.ED 11:14
DX: K85.10 Biliary acute pancreatitis without necrosis or infection (principal); I10 Essential (primary) hypertension; E78.00 Pure hypercholesterolemia, unspecified; J45.909 Unspecified asthma, uncomplicated; E11.9 Type 2 diabetes mellitus without complications; E03.9 Hypothyroidism, unspecified; F41.9 Anxiety disorder, unspecified; M79.7 Fibromyalgia; K21.9 Gastro-esophageal reflux disease without esophagitis; Z79.82 Long term (current) use of aspirin; Z79.890 Hormone replacement therapy; Z79.899 Other long term (current) drug therapy; Z88.0 Allergy status to penicillin; Z88.1 Allergy status to other antibiotic agents; Z88.3 Allergy status to other anti-infective agents; Z88.5 Allergy status to narcotic agent; Z88.8 Allergy status to other drugs, medicaments and biological substances
CPT/HCPCS: 36415; 71046; 74019; 74177; 80048; 80076; 81001; 82150; 82550; 83605; 83615; 83690; 84484; 85025; 85610; 85730; 86140; 93005; 96361; 96374; 96375; 96376; 99285; A9270; J1170; J2270; J2405; J3010; J7030; Q9967; 99284

== ENCOUNTER 2020-05-04 21:05 | Emergency (ER) | payer MEDICARE, MEDICAID ==
[2020-05-04] MEDS ORDERED: Ondansetron 4 MG Tab.DIS PO ONE (22:20)
[2020-05-04] MEDS ORDERED: Morphine 2 MG/ML SYRINGE IM ONE (22:20)
--- NOTE | 2020-05-04 22:25 | EDM.PDOC ---
ED HPI GENERAL MEDICAL PROBLEM - General Chief Complaint: General Stated Complaint: Pelvic pain Time Seen by Provider: 05/04/20 22:19 Source of Information: Reports: Patient History Limitations: Reports: No Limitations - History of Present Illness INITIAL COMMENTS - FREE TEXT/NARRATIVE: This patient is a 64 year old female that presents to the ER. Patient reports that she was getting in the tub and slipped and fell hitting her right hip on the tub. Patient reports right hip pain. Patient denies hitting head, head injury, n, v, vision changes, neck pain, back pain. Patient reports left buttock pain. Patient is in wheelchair. She was able to stand on her own and weight bear without assistance for exam. Onset: Today Onset Date: 05/04/20 Duration: Hour(s): (3) Location: Reports: Lower Extremity, Left Severity: Mild Improves with: Reports: None Worsens with: Reports: None Associated Symptoms: Reports: No Other Symptoms. Denies: Confusion, Chest Pain, Cough, cough w sputum, Diaphoresis, Fever/Chills, Headaches, Loss of Appetite, Malaise, Nausea/Vomiting, Rash, Seizure, Shortness of Breath, Syncope, Weakness Right Pelvic Pain Score (Numeric/FACES): 10 - Related Data Allergies Allergy/AdvReac Type Severity Reaction Status Date / Time ceftriaxone [From Rocephin] Allergy Rash Verified 05/04/20 21:15 cetirizine [From Zyrtec] Allergy Rash Verified 05/04/20 21:15 ciprofloxacin [From Cipro] Allergy Rash Verified 05/04/20 21:15 lorazepam [From Ativan] Allergy Rash Verified 05/04/20 21:15 Penicillins Allergy Rash Verified 05/04/20 21:15 pioglitazone [From Actos] Allergy Rash Verified 05/04/20 21:15 propoxyphene [From Darvon] Allergy Rash Verified 05/04/20 21:15 red (food color) Allergy Anaphylactic Verified 05/04/20 21:15 Shock rosiglitazone [From Avandia] Allergy Rash Verified 05/04/20 21:15 valacyclovir [From Valtrex] Allergy Rash Verified 05/04/20 21:15 Home Meds: Home Meds ALPRAZolam [Xanax] 1 mg PO DAILY PRN 05/20/19 [History] Ascorbate Calcium [Vitamin C] 500 mg PO BID 05/20/19 [History] Aspirin [Ecotrin EC] 1 mg DAILY 05/20/19 [History] Calcium Carbonate/Vitamin D3 [Calcium 600 + Vit D 200] 1 each PO BID 05/20/19 [History] Cholecalciferol (Vitamin D3) [Vitamin D] 2,000 tab DAILY 05/20/19 [History] Cyanocobalamin (Vitamin B-12) [Vitamin B-12] 1,000 mcg PO DAILY 05/20/19 [History] DULoxetine [Cymbalta] 60 mg PO DAILY 05/20/19 [History] Levothyroxine 125 mcg DAILY 05/20/19 [History] Lysine HCl [l-Lysine] 500 mg PO DAILY 05/20/19 [History] Magnesium 250 mg PO TID 05/20/19 [History] Montelukast [Singulair] 10 mg ASDIRECTED 05/20/19 [History] Multivitamin with Iron [Animal Shapes Plus Iron] 2 tab DAILY 05/20/19 [History] Omeprazole 20 mg PO BID 05/20/19 [History] atorvaSTATin [Lipitor] 10 mg DAILY 05/20/19 [History] carvediloL [Carvedilol] 6.25 mg BID 05/20/19 [History] estradioL [Estradiol] 1 mg PO DAILY 05/20/19 [History] lisinopriL [Lisinopril] 2.5 mg PO DAILY 05/20/19 [History] traMADol [Ultram] 50 mg PO ASDIRECTED PRN 05/04/20 [History] Past Medical History Cardiovascular History: Reports: High Cholesterol, Hypertension Respiratory History: Reports: Asthma Gastrointestinal History: Reports: GERD, Other (See Below) Musculoskeletal History: Reports: Fibromyalgia Psychiatric History: Reports: Anxiety Endocrine/Metabolic History: Reports: Diabetes, Type II, Hypothyroidism Hematologic History: Reports: Blood Transfusion(s) - Infectious Disease History Infectious Disease History: Reports: Chicken Pox, Measles, Mumps, Shingles - Past Surgical History HEENT Surgical History: Reports: Cataract Surgery, Tonsillectomy GI Surgical History: Reports: Appendectomy, Bariatric Procedure, Cholecystectomy, Hernia, Inguinal Female Surgical History: Reports: Hysterectomy, Oophorectomy, Tubal Ligation - History Comment History Comment: Please see RN note for past social, family and medical history Social & Family History - Family History Cardiac: Reports: High Cholesterol, Hypertension Musculoskeletal: Reports: Arthritis Psychiatric: Reports: Bipolar, Depression Endocrine/Metabolic: Reports: Diabetes, Type I, Diabetes, type II - Tobacco Use Tobacco Use Status *Q: Former Tobacco User Years of Tobacco use: 48 Packs/Tins Daily: 4 Used Tobacco, but Quit: Yes Month/Year Tobacco Last Used: 7 - Caffeine Use Caffeine Use: Reports: None - Recreational Drug Use Recreational Drug Use: No ED ROS GENERAL - Review of Systems Review Of Systems: See Below Constitutional: Reports: No Symptoms HEENT: Reports: No Symptoms Respiratory: Reports: No Symptoms Cardiovascular: Reports: No Symptoms Endocrine: Reports: No Symptoms GI/Abdominal: Reports: No Symptoms : Reports: No Symptoms Musculoskeletal: Reports: Joint Pain (right hip), Muscle Pain (right buttock) Skin: Reports: No Symptoms Neurological: Reports: No Symptoms Psychiatric: Reports: No Symptoms Hematologic/Lymphatic: Reports: No Symptoms ED EXAM, GENERAL - Physical Exam Exam: See Below Exam Limited By: No Limitations General Appearance: Alert, WD/WN, No Apparent Distress Eye Exam: Bilateral Eye: Normal Inspection, PERRL Ears: Normal External Exam, Normal Canal, Hearing Grossly Normal, Normal TMs Ear Exam: Bilateral Ear: Auricle Normal, Canal Normal, TM normal Nose: Normal Inspection, Normal Mucosa, No Blood Throat/Mouth: Normal Inspection, Normal Lips, Normal Teeth, Normal Gums, Normal Oropharynx, Normal Voice, No Airway Compromise Head: Atraumatic, Normocephalic Neck: Normal Inspection, Supple, Non-Tender, Full Range of Motion Respiratory/Chest: No Respiratory Distress, Lungs Clear, Normal Breath Sounds, No Accessory Muscle Use Cardiovascular: Normal Peripheral Pulses, Regular Rate, Rhythm, No Gallop, No JVD, No Murmur, No Rub, Other (BLE edema chronic) Peripheral Pulses: 2+: Posterior Tibial (L), Posterior Tibial (R) GI/Abdominal: Soft Extremities: Normal Inspection, Normal Range of Motion, No Pedal Edema, Normal Capillary Refill, Other (posterior hip/buttock pain. ROM intact. Neurovascular intact. No leg shortening. Able to bear weight. ) Neurological: Alert, Oriented Psychiatric: Normal Affect, Normal Mood Skin Exam: Warm, Dry, Intact, Normal Color, No Rash Course - Vital Signs Last Recorded V/S: Last Vital Signs Temp 95.9 F L 05/04/20 21:09 Pulse 78 05/04/20 21:09 Resp 18 05/04/20 21:09 BP 143/73 H 05/04/20 21:09 Pulse Ox 93 L 05/04/20 21:09 - Orders/Labs/Meds Orders: Active Orders 24 hr Category Date Time Status Hip Min 2V or 3V w Pelvis Rt [CR] Routine Exams 05/04/20 Taken Meds: Medications Discontinued Medications Generic Name Dose Route Start Last Admin Trade Name Danielle PRN Reason Stop Dose Admin Morphine Sulfate 2 mg 05/04/20 22:20 05/04/20 22:52 Morphine IM 05/04/20 22:21 2 mg ONETIME ONE Administration Ondansetron HCl 4 mg 05/04/20 22:20 05/04/20 22:52 Zofran Odt PO 05/04/20 22:21 4 mg ONETIME ONE Administration - Re-Assessments/Exams Free Text/Narrative Re-Assessment/Exam: 05/04/20 22:29 Patient is educated and voices back understanding, along with Lanette AGUILAR at patient side. If pain continues, she is to followup with PCP for possible ct of the hip to r/o occult fx. However, patient was able to bear weight in the ER. Departure - Departure Time of Disposition: 22:32 Disposition: Home, Self-Care 01 Condition: Fair Clinical Impression: Contusion of right hip Qualifiers: Encounter type: initial encounter Qualified Code(s): S70.01XA - Contusion of right hip, initial encounter - Discharge Information *PRESCRIPTION DRUG MONITORING PROGRAM REVIEWED*: Not Applicable *COPY OF PRESCRIPTION DRUG MONITORING REPORT IN PATIENT TISH: Not Applicable Instructions: How to Use Cold Therapy, [id number], Contusion, [id number] Forms: ED Department Discharge Additional Instructions: Followup with your primary care provider Return to the ER for worsening of condition or any emergent concerns Rest Ice Elevate Tylenol or your Ultram for pain If pain continues after 7 days, be evaluated by primary care provider for pos sible further imaging Sepsis Event Note (ED) - Evaluation Sepsis Screening Result: No Definite Risk - Focused Exam Vital Signs: Vital Signs Temp Pulse Resp BP Pulse Ox 05/04/20 21:09 95.9 F L 78 18 143/73 H 93 L - My Orders Last 24 Hours: My Active Orders 05/04/20 Hip Min 2V or 3V w Pelvis Rt [CR] Routine - Assessment/Plan Last 24 Hours: My Active Orders 05/04/20 Hip Min 2V or 3V w Pelvis Rt [CR] Routine Plan: PLEASE SEE RN NOTE FOR PFSH.
== END 2020-05-04 23:15 | disposition home or self-care (01) ==
LOC: CC.ED 21:05
DX: S70.01XA Contusion of right hip, initial encounter (principal); E78.00 Pure hypercholesterolemia, unspecified; I10 Essential (primary) hypertension; J45.909 Unspecified asthma, uncomplicated; K21.9 Gastro-esophageal reflux disease without esophagitis; F41.9 Anxiety disorder, unspecified; E11.9 Type 2 diabetes mellitus without complications; E03.9 Hypothyroidism, unspecified; Z88.1 Allergy status to other antibiotic agents; Z88.8 Allergy status to other drugs, medicaments and biological substances; Z88.0 Allergy status to penicillin; Z91.018 Allergy to other foods; Z79.82 Long term (current) use of aspirin; Z79.899 Other long term (current) drug therapy; Z87.891 Personal history of nicotine dependence; W01.198A Fall on same level from slipping, tripping and stumbling with subsequent striking against other object, initial encounter
CPT/HCPCS: 73502; 96372; 99283; A9270; J2270

== ENCOUNTER 2021-12-17 09:34 | Inpatient (IN) | payer MEDICARE, MEDICAID ==
[2021-12-17 10:59] LABS: CHLORIDE,CL 96 mEq/L (98-106); SODIUM,NA 132 mEq/L (136-145)
[2021-12-17] MEDS ORDERED: Acetaminophen 325 MG Tab PO PRN (15:45)
[2021-12-17] MEDS ORDERED: Albuterol/Ipratropium 3.0-0.5 MG/3 ML Neb Soln NEB PRN (15:45)
[2021-12-17] MEDS ORDERED: Sodium Chloride 0.9% 10 ML Syringe FLUSH PRN (15:45)
[2021-12-17] MEDS ORDERED: ALPRAZolam 0.25 MG Tab PO PRN (16:24)
[2021-12-17] MEDS: Albuterol/Ipratropium 3.0-0.5 MG/3 ML Neb Soln NEB SCH ×2 (16:50→19:48)
[2021-12-17] MEDS: Carvedilol 6.25 MG Tab PO SCH (16:52)
[2021-12-17] MEDS: Meropenem 1 GM SDV IVPUSH SCH ×2 (16:52→23:47)
[2021-12-17] MEDS: Azithromycin 500 MG in Sodium Chloride 0.9% 250 ML IV SCH (19:45)
[2021-12-17] MEDS: Montelukast 10 MG Tab PO SCH (19:48)
[2021-12-17] MEDS: Acetaminophen 500 MG Tab PO PRN (19:52)
[2021-12-18] MEDS: Levothyroxine 100 MCG Tab PO SCH (06:35)
[2021-12-18] MEDS: Pantoprazole 40 MG Tab.CR PO SCH (06:35)
[2021-12-18] MEDS: Levothyroxine 50 MCG Tab PO SCH (06:35)
[2021-12-18] MEDS: Albuterol/Ipratropium 3.0-0.5 MG/3 ML Neb Soln NEB SCH ×4 (07:42→19:34)
[2021-12-18] MEDS: DULoxetine 30 MG Cap PO SCH (07:42)
[2021-12-18] MEDS: Estradiol 1 MG Tab PO SCH (07:42)
[2021-12-18] MEDS: Aspirin 81 MG Tab.EC PO SCH (07:42)
[2021-12-18] MEDS: Meropenem 1 GM SDV IVPUSH SCH ×3 (07:42→23:35)
[2021-12-18] MEDS: atorvaSTATin 10 MG Tab PO SCH (07:43)
[2021-12-18] MEDS: Carvedilol 6.25 MG Tab PO SCH ×2 (07:43→17:32)
[2021-12-18] MEDS: Lisinopril 5 MG Tab PO SCH (07:43)
[2021-12-18 08:07] LABS: CHLORIDE,CL 100 mEq/L (98-106); SODIUM,NA 135 mEq/L (136-145)
[2021-12-18] MEDS: Acetaminophen 500 MG Tab PO PRN (17:40)
[2021-12-18] MEDS: traMADol 50 MG Tab PO PRN (17:40)
[2021-12-18] MEDS: Montelukast 10 MG Tab PO SCH (19:34)
[2021-12-18] MEDS: Azithromycin 500 MG in Sodium Chloride 0.9% 250 ML IV SCH (19:42)
[2021-12-19] MEDS: Pantoprazole 40 MG Tab.CR PO SCH (06:00)
[2021-12-19] MEDS: Levothyroxine 100 MCG Tab PO SCH (06:00)
[2021-12-19] MEDS: Levothyroxine 50 MCG Tab PO SCH (06:01)
[2021-12-19] MEDS: Albuterol/Ipratropium 3.0-0.5 MG/3 ML Neb Soln NEB SCH ×4 (07:32→19:54)
[2021-12-19] MEDS: Meropenem 1 GM SDV IVPUSH SCH ×2 (07:32→16:04)
[2021-12-19] MEDS: Lisinopril 5 MG Tab PO SCH (07:33)
[2021-12-19] MEDS: atorvaSTATin 10 MG Tab PO SCH (07:33)
[2021-12-19] MEDS: Estradiol 1 MG Tab PO SCH (07:33)
[2021-12-19] MEDS: DULoxetine 30 MG Cap PO SCH (07:33)
[2021-12-19] MEDS: Aspirin 81 MG Tab.EC PO SCH (07:33)
[2021-12-19] MEDS: Carvedilol 6.25 MG Tab PO SCH ×2 (07:34→17:32)
[2021-12-19] MEDS ORDERED: guaiFENesin 200 MG Tab PO SCH (08:00)
[2021-12-19 10:19] LABS: CHLORIDE,CL 100 mEq/L (98-106); SODIUM,NA 134 mEq/L (136-145)
[2021-12-19] MEDS ORDERED: Enoxaparin 40 MG/0.4 ML Syringe SUBCUT SCH (12:00)
[2021-12-19] MEDS: traMADol 50 MG Tab PO PRN (17:40)
[2021-12-19] MEDS: Acetaminophen 500 MG Tab PO PRN (17:40)
[2021-12-19] MEDS: Azithromycin 500 MG in Sodium Chloride 0.9% 250 ML IV SCH (19:54)
[2021-12-19] MEDS: Montelukast 10 MG Tab PO SCH (19:54)
== END 2021-12-20 00:20 | DRG 194 ==
LOC: CC.FCMC 09:34 → CC.MS 11:17 → UNDOADMIN 11:17 → CC.MS 15:33
PROVIDERS: ADMIT Family Medicine; ATTEND Nurse Practitioner Family
DX: J18.9 Pneumonia, unspecified organism (principal); J45.901 Unspecified asthma with (acute) exacerbation; Z68.43 Body mass index [BMI] 50.0-59.9, adult; I11.0 Hypertensive heart disease with heart failure; E11.65 Type 2 diabetes mellitus with hyperglycemia; I50.9 Heart failure, unspecified; G47.33 Obstructive sleep apnea (adult) (pediatric); Z79.82 Long term (current) use of aspirin; Z79.890 Hormone replacement therapy; Z79.899 Other long term (current) drug therapy; E66.01 Morbid (severe) obesity due to excess calories; E03.9 Hypothyroidism, unspecified; M79.7 Fibromyalgia; I44.7 Left bundle-branch block, unspecified; Z20.822 Contact with and (suspected) exposure to COVID-19
CPT/HCPCS: 36415; 71046; 80048; 80053; 81001; 81003; 82947; 83605; 83735; 83880; 84484; 85025; 85027; 85610; 86140; 87040; 93005; 93010; 93306; 94640; 99223; 99232; 99233; 99239; A9270-GY; J0456; J1650; J2185; J7050; J7620-GY; U0002

== ENCOUNTER 2022-03-07 22:20 | Emergency (ER) | payer MEDICARE, MEDICAID ==
[2022-03-07] MEDS: Take Home: Clindamycin HCl 150 MG Cap, 6 Cap Pack PO ONE (23:57)
== END 2022-03-08 00:04 | disposition home or self-care (01) ==
LOC: CC.ED 22:20
DX: L02.214 Cutaneous abscess of groin (principal)
CPT/HCPCS: 87070; 87077; 87186; 99283; A9270-GY

== ENCOUNTER → 2022-11-14 | Day surgery (SDC) | payer MEDICARE, MEDICAID ==
[~2022-11-14] MED LIST: Flumazenil 0.1 MG/ML 10 ML MDV ONE; Ketamine 200 MG/20 ML MDV ONE; Lactated Ringers 1,000 ML IV SCH; Midazolam 1 MG/ML 2 ML SDV ONE; Propofol 200 MG/20 ML SDV ONE; fentaNYL 50 MCG/ML SDV ONE
== END ==
LOC: CC.SDS 08:05
PROVIDERS: ATTEND Family Medicine
DX: Z12.11 Encounter for screening for malignant neoplasm of colon (principal); M81.0 Age-related osteoporosis without current pathological fracture; E03.9 Hypothyroidism, unspecified; E78.5 Hyperlipidemia, unspecified; E11.9 Type 2 diabetes mellitus without complications; E66.01 Morbid (severe) obesity due to excess calories; F32.A Depression, unspecified; G47.30 Sleep apnea, unspecified; K42.9 Umbilical hernia without obstruction or gangrene; Z88.8 Allergy status to other drugs, medicaments and biological substances; Z88.0 Allergy status to penicillin; Z88.1 Allergy status to other antibiotic agents; Z88.5 Allergy status to narcotic agent; Z91.02 Food additives allergy status; Z79.82 Long term (current) use of aspirin; Z79.899 Other long term (current) drug therapy
CPT/HCPCS: J2250; J2704; J3010; J3490; J7120

== ENCOUNTER 2023-06-04 08:30 | Emergency (ER) | payer MEDICAID, MEDICARE ==
[2023-06-04] MEDS ORDERED: Albuterol/Ipratropium 3.0-0.5 MG/3 ML Neb Soln NEB ONE (08:41)
[2023-06-04 08:55] LABS: BASOPHILS ABSOLUTE AUTO 0.03 10^3/uL (0.00-0.50); BASOPHILS PERCENT AUTO 0.3 % (0-1); EOSINOPHILS ABSOLUTE AUTO 0.17 10^3/uL (0.00-1.50); EOSINOPHILS PERCENT AUTO 1.5 % (0-6); HEMOGLOBIN 12.4 g/dL (12.0-16.0); IMMATURE GRAN ABSOLUTE AUTO 0.01 10^3/uL (0.00-0.49); IMMATURE GRAN PERCENT AUTO 0.1 % (0.0-4.9); LYMPHOCYTES ABSOLUTE AUTO 3.42 10^3/uL (0.60-5.00); LYMPHOCYTES PERCENT AUTO 30.5 % (24-44); MEAN CORPUSCULAR HEMOGLOBIN 29.7 pg (27.0-32.0); MEAN CORPUSCULAR HGB CONC 32.6 g/dL (32.0-36.0); MEAN CORPUSCULAR VOLUME 90.9 fL (83.0-97.0); MONOCYTES ABSOLUTE AUTO 0.85 10^3/uL (0.00-1.50); MONOCYTES PERCENT AUTO 7.6 % (0-10); NEUTROPHILS ABSOLUTE AUTO 6.75 x10^3/uL (1.80-8.00); PLATELET COUNT,PLT 250 10^3/uL (150-400); RED BLOOD CELL COUNT 4.18 x10^6/uL (4.00-5.50); WHITE BLOOD CELL COUNT,WBC 11.2 10^3/uL (4.0-11.0)
[2023-06-04 09:13] LABS: ALBUMIN 3.1 g/dL (3.4-5.0); BILIRUBIN TOTAL 0.8 mg/dL (0.0-1.0); C-REACTIVE PROTEIN 12.92 mg/dL (<=0.30); CALCIUM 9.4 mg/dL (8.4-10.1); EST CRCL DRUG DOSING (CG) 38.68 mL/min; MAGNESIUM 1.6 mg/dL (1.8-2.4); POTASSIUM,K 3.8 mEq/L (3.5-5.0); PROTEIN TOTAL,TP 7.4 g/dL (6.4-8.2)
[2023-06-04] MEDS ORDERED: Iopamidol 755 Mg/ML 100 ML Bottle IVPUSH ONE (09:59)
== END 2023-06-04 12:15 | disposition home or self-care (01) ==
LOC: CC.ED 08:30
DX: J18.9 Pneumonia, unspecified organism (principal); I10 Essential (primary) hypertension; E78.00 Pure hypercholesterolemia, unspecified; J45.909 Unspecified asthma, uncomplicated; K21.9 Gastro-esophageal reflux disease without esophagitis; E11.9 Type 2 diabetes mellitus without complications; E03.9 Hypothyroidism, unspecified; Z79.82 Long term (current) use of aspirin; Z79.899 Other long term (current) drug therapy; Z88.0 Allergy status to penicillin; Z88.1 Allergy status to other antibiotic agents; Z88.8 Allergy status to other drugs, medicaments and biological substances; Z91.048 Other nonmedicinal substance allergy status
CPT/HCPCS: 36415; 71045; 71275; 80053; 83735; 83880; 84484; 85025; 85379; 86140; 93005; 94640; 99285; Q9967; 93010; 99284; J7620-GY

== ENCOUNTER 2025-04-08 23:24 | Emergency (ER) | payer MEDICARE, MEDICAID ==
[2025-04-08 23:47] LABS: BASOPHILS ABSOLUTE AUTO 0.03 10^3/uL (0.00-0.50); BASOPHILS PERCENT AUTO 0.4 % (0-1); EOSINOPHILS ABSOLUTE AUTO 0.28 10^3/uL (0.00-1.50); EOSINOPHILS PERCENT AUTO 3.7 % (0-6); IMMATURE GRAN ABSOLUTE AUTO 0.01 10^3/uL (0.00-0.49); IMMATURE GRAN PERCENT AUTO 0.1 % (0.0-4.9); LYMPHOCYTES ABSOLUTE AUTO 2.43 10^3/uL (0.60-5.00); LYMPHOCYTES PERCENT AUTO 32.4 % (24-44); MONOCYTES ABSOLUTE AUTO 0.59 10^3/uL (0.00-1.50); MONOCYTES PERCENT AUTO 7.9 % (0-10); NEUTROPHILS ABSOLUTE AUTO 4.17 x10^3/uL (1.80-8.00); NEUTROPHILS PERCENT AUTO 55.5 % (41-71); PLATELET COUNT,PLT 266 10^3/uL (150-400); RED BLOOD CELL COUNT 4.35 x10^6/uL (4.00-5.50); WHITE BLOOD CELL COUNT,WBC 7.5 10^3/uL (4.0-11.0)
[2025-04-09 00:05] LABS: ALANINE AMINOTRANSFERASE,ALT 27.0 U/L (12-78); ASPARTATE AMNIOTRANSFERASE,AST 18.0 U/L (15-37); BILIRUBIN TOTAL 0.5 mg/dL (0.0-1.0); BLOOD UREA NITROGEN,BUN 22.0 mg/dL (7-18); CARBON DIOXIDE,CO2 28.0 mmol/L (21-32); CHLORIDE,CL 99.0 mEq/L (98-106); CREATININE 0.9 mg/dL (0.6-1.0); EST CRCL DRUG DOSING (CG) 41.78 mL/min; GLUCOSE RANDOM 200.0 mg/dL (75-99); POTASSIUM,K 3.5 mEq/L (3.5-5.0); PROTEIN TOTAL,TP 7.4 g/dL (6.4-8.2); SODIUM,NA 137.0 mEq/L (136-145)
[2025-04-09 00:05] LABS: APPEARANCE,URINE CLEAR (CLEAR); GLUCOSE,URINE NEGATIVE (NEGATIVE); OCCULT BLOOD,URINE NEGATIVE (NEGATIVE)
[2025-04-09 00:06] LABS: ESTIMATED GFR 69.0 mL/min (>=60); INR 1.0 (0.92-1.18)
[2025-04-09 00:14] LABS: SQUAMOUS EPITHELIAL CELLS,UR FEW /HPF (NOT SEEN)
== END 2025-04-09 00:29 | disposition home or self-care (01) ==
LOC: CC.ED 23:24
DX: F41.9 Anxiety disorder, unspecified (principal); E78.00 Pure hypercholesterolemia, unspecified; I10 Essential (primary) hypertension; K21.9 Gastro-esophageal reflux disease without esophagitis; E11.9 Type 2 diabetes mellitus without complications; E03.9 Hypothyroidism, unspecified; Z90.49 Acquired absence of other specified parts of digestive tract; Z88.0 Allergy status to penicillin; Z88.1 Allergy status to other antibiotic agents; Z88.8 Allergy status to other drugs, medicaments and biological substances; Z91.041 Radiographic dye allergy status; Z79.82 Long term (current) use of aspirin; Z79.899 Other long term (current) drug therapy
CPT/HCPCS: 36415; 71045; 80053; 81001; 83690; 83735; 84484; 85025; 85610; 86140; 87428-QW; 93005; 99285

== ENCOUNTER 2025-04-25 14:05 | Emergency (ER) | payer MEDICARE, MEDICAID | END 2025-04-25 14:45 | disposition home or self-care (01) | LOC: CC.ED 14:05 | DX: S06.0X0A Concussion without loss of consciousness, initial encounter (principal); S00.03XA Contusion of scalp, initial encounter; R40.2412 Glasgow coma scale score 13-15, at arrival to emergency department; E78.00 Pure hypercholesterolemia, unspecified; I10 Essential (primary) hypertension; E11.9 Type 2 diabetes mellitus without complications; J45.909 Unspecified asthma, uncomplicated; E03.9 Hypothyroidism, unspecified; K21.9 Gastro-esophageal reflux disease without esophagitis; Z90.49 Acquired absence of other specified parts of digestive tract; Z90.710 Acquired absence of both cervix and uterus; Z88.1 Allergy status to other antibiotic agents; Z88.0 Allergy status to penicillin; Z88.8 Allergy status to other drugs, medicaments and biological substances; Z88.5 Allergy status to narcotic agent; Z91.02 Food additives allergy status; Z79.82 Long term (current) use of aspirin; Z79.890 Hormone replacement therapy; Z79.899 Other long term (current) drug therapy; W01.10XA Fall on same level from slipping, tripping and stumbling with subsequent striking against unspecified object, initial encounter | CPT/HCPCS: 99282 ==